=== PATIENT | male | born 1975 | race Caucasian/White ===

== ENCOUNTER 2017-07-11 13:25 | Emergency (ER) | payer SELFPAY ==
[2017-07-11] MEDS ORDERED: traMADol 50 MG Tab PO ONE (13:55)
--- NOTE | 2017-07-11 13:59 | EDM.PDOC ---
ED HPI GENERAL MEDICAL PROBLEM - General Chief Complaint: Lower Extremity Injury/Pain Stated Complaint: HIP PAIN Time Seen by Provider: 07/11/17 13:27 Source of Information: Reports: Patient History Limitations: Reports: No Limitations - History of Present Illness INITIAL COMMENTS - FREE TEXT/NARRATIVE: History of present illness: []Patient had right hip surgery 20 years ago and complained of pain since last summer. Review of systems: As per history of present illness and below otherwise all systems reviewed and negative. Past medical history: As per history of present illness and as reviewed below otherwise noncontributory. Surgical history: As per history of present illness and as reviewed below otherwise noncontributory. Social history: No reported history of drug or alcohol abuse. Family history: As per history of present illness and as reviewed below otherwise noncontributory. Physical exam: General: Well developed, well nourished in NAD HEENT: Atraumatic, normocephalic, pupils reactive, negative for conjunctival pallor or scleral icterus, mucous membranes moist, throat clear, neck supple, nontender, trachea midline. Lungs: Clear to auscultation, breath sounds equal bilaterally, chest nontender. Heart: S1S2, regular, negative for clicks, rubs, or JVD. Abdomen: Soft, nondistended, nontender. Negative for masses or hepatosplenomegaly. Negative for costovertebral tenderness. Pelvis: Stable nontender. Genitourinary: Deferred. Rectal: Deferred. Extremities: Atraumatic, negative for cords or calf pain. Neurovascular unremarkable. Neuro: Awake, alert, oriented. Cranial nerves II through XII unremarkable. Cerebellum unremarkable. Motor and sensory unremarkable throughout. Exam nonfocal. Diagnostics: [] Therapeutics: [] Impression: []Chronic right hip pain Plan: []Follow-up orthopedics, tramadol for pain Definitive disposition and diagnosis as appropriate pending reevaluation and review of above. right hip Pain Score (Numeric/FACES): 10 - Related Data Allergies Allergy/AdvReac Type Severity Reaction Status Date / Time No Known Allergies Allergy Verified 07/11/17 13:56 Home Meds: Home Meds traMADol [Ultram] 50 mg PO Q8H PRN #16 tablet 07/11/17 [Rx] Review of Systems - Review of Systems Review Of Systems: See Below (See history of present illness) ED EXAM, GENERAL - Physical Exam Exam: See Below (See history of present illness) Course - Vital Signs Last Recorded V/S: Last Vital Signs Temp 97.8 F 07/11/17 13:57 Pulse 120 H 07/11/17 13:57 Resp 18 07/11/17 13:57 BP 140/87 07/11/17 13:57 Pulse Ox 96 07/11/17 13:57 - Orders/Labs/Meds Orders: Active Orders 24 hr Category Date Time Status Hip Min 2V or 3V w Pelvis Rt [CR] Stat Exams 07/11/17 13:56 Taken Meds: Medications Discontinued Medications Generic Name Dose Route Start Last Admin Trade Name Freq PRN Reason Stop Dose Admin Tramadol HCl 50 mg 07/11/17 13:55 Ultram PO 07/11/17 13:56 ONETIME ONE Departure - Departure Time of Disposition: 14:30 Disposition: Home, Self-Care 01 Condition: Good Clinical Impression: Chronic right hip pain - Discharge Information Prescriptions: traMADol [Ultram] 50 mg PO Q8H PRN #16 tablet PRN Reason: Pain Referrals: PCP,None [Primary Care Provider] - Forms: ED Department Discharge Additional Instructions: The following information is given to patients seen in the emergency department who are being discharged to home. This information is to outline your options for follow-up care. We provide all patients seen in our emergency department with a follow-up referral. The need for follow-up, as well as the timing and circumstances, are variable depending upon the specifics of your emergency department visit. If you don't have a primary care physician on staff, we will provide you with a referral. We always advise you to contact your personal physician following an emergency department visit to inform them of the circumstance of the visit and for follow-up with them and/or the need for any referrals to a consulting specialist. The emergency department will also refer you to a specialist when appropriate. This referral assures that you have the opportunity for follow-up care with a specialist. All of these measure are taken in an effort to provide you with optimal care, which includes your follow-up. Under all circumstances we always encourage you to contact your private physician who remains a resource for coordinating your care. When calling for follow-up care, please make the office aware that this follow-up is from your recent emergency room visit. If for any reason you are refused follow-up, please contact the [facility] at and asked to speak to the emergency department charge nurse. Tramadol or Motrin for pain follow-up with orthopedics next available appointment. [facility] [address], [address] [place] [address] - My Orders Last 24 Hours: My Active Orders 07/11/17 13:56 Hip Min 2V or 3V w Pelvis Rt [CR] Stat - Assessment/Plan Last 24 Hours: My Active Orders 07/11/17 13:56 Hip Min 2V or 3V w Pelvis Rt [CR] Stat
--- NOTE | 2017-07-13 15:53 | CR ---
EXAM DATE: 07/11/17 PATIENT'S AGE: 41 Patient: TIFFANI REID Facility: [place], [place] Site . Site : 1975 Study: XRay Extremity Right hip [id number] 2:22:44 PM Ordering Physician: Wilber Brennan Final Report: Indication: Pain. Technique: AP pelvis and 2 views of the right hip. Findings: Marked degenerative arthritis of the right hip with narrowing, spurring, and sclerosis. There is [id number] along the superior margin of the joint space. There are 2 metallic pins traversing the intertrochanteric right hip. The left hip is within normal limits. Impression: Advanced degenerative arthritis of the right hip. Postsurgical change of the right hip. No fracture or dislocation. Dictated by Singh Spaulding MD @ Jul 11 2017 2:43PM (Electronic Signature) Report Signed by Proxy. WINTER
== END 2017-07-11 14:40 | disposition home or self-care (01) ==
LOC: MW.ED 13:25
DX: M25.551 Pain in right hip (principal); G89.29 Other chronic pain
CPT/HCPCS: 73502; 99283; A9270

== ENCOUNTER 2017-10-20 19:45 | Emergency (ER) | payer SELFPAY ==
--- NOTE | 2017-10-20 20:44 | EDM.PDOC ---
ED HPI GENERAL MEDICAL PROBLEM - General Chief Complaint: Gastrointestinal Problem Stated Complaint: RECTAL PAIN Time Seen by Provider: 10/20/17 20:38 Source of Information: Reports: Patient History Limitations: Reports: No Limitations - History of Present Illness INITIAL COMMENTS - FREE TEXT/NARRATIVE: HISTORY AND PHYSICAL: []42-year-old male presenting with rectal pain History of Present Illness: []Patient has history of having hemorrhoids. He states he was standing at work today and instantly had this severe pain he has used Preparation H without any relief. Review of Systems: As per history of present illness and below otherwise all systems reviewed and negative. Past medical history: As per history of present illness and as reviewed below otherwise noncontributory. Surgical history: As per history of present illness and as reviewed below otherwise noncontributory. Social history: No reported history of drug or alcohol abuse. Family history: As per history of present illness and as reviewed below otherwise noncontributory. Physical exam: Alert and oriented gentleman answering questions in full sentences denies any other difficulties. HEENT: Atraumatic, normocehpalic, pupils reactive, negative for conjunctival pallor or scleral icterus, mucous membranes moist, throat clear, neck supple, nontender, trachea midline. Lungs: Clear to auscultation, breath sounds equal bilaterally, chest non tender. Heart: S1S2, regular, negative for clicks, rubs, or JVD. Abdomen: Soft, nondistended, nontender. Negative for masses or hepatossplenmegaly. Negative for costovertebral tenderness. Pelvis: Stable nontender. Genitourinary: Deferred. Rectal: Deferred Extremities: Atraumatic, negative for cords or calf pain. Neurovascular unremarkable. Neuro: Awake, alert, oriented. Cranial nerves II through XII unremarkable. Cerebellum unremarkable. Motor and sensory unremarkable throughout. Exam nonfocal. Diagnostics: [] Therapeutics: [] Impression: [Thrombosed hemorrhoids] Plan: [Discharged to home [facility] Follow-up with surgeon ] Definitive disposition and diagnosis as appropriate pending reevaluation and review of above. Onset: Today, Sudden Location: Reports: Other (rectal) REctum Pain Score (Numeric/FACES): 8 - Related Data Allergies Allergy/AdvReac Type Severity Reaction Status Date / Time No Known Allergies Allergy Verified 10/20/17 20:35 Home Meds: Home Meds Hydrocortisone [Proctocort] 28.35 gm RC Q6HR #1 cream..g. 10/20/17 [Rx] Past Medical History - Past Surgical History Musculoskeletal Surgical History: Reports: Other (See Below) Other Musculoskeletal Surgeries/Procedures:: Broken hip Social & Family History - Family History Family Medical History: Noncontributory - Tobacco Use Smoking Status *Q: Current Every Day Smoker Years of Tobacco use: 30 Packs/Tins Daily: 1 - Alcohol Use Days Per Week of Alcohol Use: 7 Number of Drinks Per Day: 2 Total Drinks Per Week: 14 - Recreational Drug Use Recreational Drug Use: No ED ROS GENERAL - Review of Systems Review Of Systems: ROS reveals no pertinent complaints other than HPI. ED EXAM, GI/ABD - Physical Exam Exam: See Below (see dictation) Course - Vital Signs Last Recorded V/S: Last Vital Signs Temp 36.1 C 10/20/17 19:45 Pulse 92 10/20/17 19:45 Resp 18 10/20/17 19:45 BP 127/85 10/20/17 19:45 Pulse Ox 97 10/20/17 19:45 Departure - Departure Time of Disposition: 20:40 Disposition: Home, Self-Care 01 Condition: Good Clinical Impression: Thrombosed external hemorrhoids - Discharge Information Prescriptions: Hydrocortisone [Proctocort] 28.35 gm RC Q6HR #1 cream..g. Referrals: PCP,None [Primary Care Provider] - Additional Instructions: The following information is given to patients seen in the emergency department who are being discharged to home. This information is to outline your options for follow-up care. We provide all patients seen in our emergency department with a follow-up referral. The need for follow-up, as well as the timing and circumstances, are variable depending upon the specifics of your emergency department visit. If you don't have a primary care physician on staff, we will provide you with a referral. We always advise you to contact your personal physician following an emergency department visit to inform them of the circumstance of the visit and for follow-up with them and/or the need for any referrals to a consulting specialist. The emergency department will also refer you to a specialist when appropriate. This referral assures that you have the opportunity for followup care with a specialist. All of these measure are taken in an effort to provide you with optimal care, which includes your followup. Under all circumstances we always encourage you to contact your private physician who remains a resource for coordinating your care. When calling for followup care, please make the office aware that this follow-up is from your recent emergency room visit. If for any reason you are refused follow-up, please contact the [facility] emergency department at and asked to speak to the emergency department charge nurse. You have some hemorrhoids that need to be addressed by surgeon Proctocort cream has been ordered by prescription to use every 6 hours Colace for stool softener twice a day Sitz baths with warm water Follow-up with surgeon [facility] - [facility] Professional Building [address] [place] [address], [address] [place] [address]
== END 2017-10-20 21:00 | disposition home or self-care (01) ==
LOC: MW.ED 19:45
DX: K64.5 Perianal venous thrombosis (principal); F17.210 Nicotine dependence, cigarettes, uncomplicated
CPT/HCPCS: 99282; 99283

== ENCOUNTER 2017-10-23 10:56 | Day surgery (SDC) | payer OTHER ==
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
[2017-10-23] MEDS ORDERED: Lidocaine 2% 5 ML SDV ONE (11:38)
[2017-10-23] MEDS ORDERED: Rocuronium 10 MG/ML 10 ML Syringe ONE (11:38)
[2017-10-23] MEDS ORDERED: fentaNYL 250 MCG/5 ML SDV ONE (11:38)
[2017-10-23] MEDS ORDERED: Ondansetron 4 MG/2 ML SDV ONE (11:38)
[2017-10-23] MEDS ORDERED: Midazolam 1 MG/ML 2 ML SDV ONE (11:38)
[2017-10-23] MEDS ORDERED: Propofol 200 MG/20 ML SDV ONE (11:38)
[2017-10-23] MEDS ORDERED: Bupivacaine 0.5% 10 ML SDV ONE (11:41)
[2017-10-23] MEDS ORDERED: Gelatin Sponge,Absorbable 12-7 mm Sponge TOP ONE (11:44)
[2017-10-23] MEDS ORDERED: HYDROmorphone 2 MG/ML SDV ONE (11:46)
[2017-10-23] MEDS ORDERED: Lactated Ringers 1,000 ML IV SCH (12:00)
--- NOTE | 2017-10-23 12:59 | PCM.OPNOTE ---
- General Post-Op/Procedure Note Date of Surgery/Procedure: 10/23/17 Operative Procedure(s): Left lateral hemorrhoidectomy Findings: Enlarged thrombosed left lateral internal hemorrhoid that was necrosing the skin. Pre Op Diagnosis: Thrombosed internal hemorrhoids Post-Op Diagnosis: same Anesthesia Technique: General ET Tube Primary Surgeon: Karen Ansari EBL in mLs: 25 Condition: Good
[2017-10-23] MEDS: fentaNYL 100 MCG/2 ML SDV IVPUSH PRN ×4 (13:27→13:44)
[2017-10-23] MEDS ORDERED: Acetaminophen/oxyCODONE 325-5 MG Tab PO PRN (13:39)
--- NOTE | 2017-10-23 13:53 | PCM.POSTAN ---
POST ANESTHESIA ASSESSMENT - MENTAL STATUS Mental Status: Alert, Oriented Free Text/Narrative:: Conversant and tolerable discomfort with narcotic assistance. - RESPIRATORY Respiratory Status: Respiratory Rate WNL, Airway Patent, O2 Saturation Stable - CARDIOVASCULAR CV Status: Pulse Rate WNL, Blood Pressure Stable - GASTROINTESTINAL GI Status: No Symptoms - POST OP HYDRATION Hydration Status: Adequate & Stable - OBSERVATIONS Free Text/Narrative:: To phase II
--- NOTE | 2017-10-23 14:26 | PCM48HPAN ---
Post Anesthesia Note - EVALUATION WITHIN 48HRS OF ANESTHETIC Vital Signs in Normal Range: Yes Patient Participated in Evaluation: Yes Respiratory Function Stable: Yes Airway Patent: Yes Cardiovascular Function Stable: Yes Hydration Status Stable: Yes Pain Control Satisfactory: Yes Nausea and Vomiting Control Satisfactory: Yes Mental Status Recovered: Yes Resp Rate: 14 - COMMENTS/OBSERVATIONS Free Text/Narrative:: Pain level improved over his presentation here for surgery. Home soon.
--- NOTE | 2017-10-23 15:09 | OR ---
SURGEON: ANA WADE MD DATE OF PROCEDURE: 10/23/2017 PREOPERATIVE DIAGNOSIS: Thrombosed internal hemorrhoid. POSTOPERATIVE DIAGNOSIS: Thrombosed internal hemorrhoid. PROCEDURE PERFORMED: Hemorrhoidectomy x1. ANESTHESIA: General endotracheal anesthesia. FINDINGS: Large prolapsed left lateral internal hemorrhoid with skin necrosis and thrombosis. SPECIMEN: Hemorrhoids. ESTIMATED BLOOD LOSS: 25 mL. COMPLICATIONS: None. INDICATIONS: The patient is a 42-year-old male who presents with several days' worth of perianal pain. He presented to the emergency room on the and was told that he most likely had an externally thrombosed hemorrhoid. He was given hydrocortisone cream, which did not improve his symptoms. The patient was then referred to my office. On physical exam today, I noted a large prolapsed internal hemorrhoid with thrombosis and partial necrosis of the skin overlying the hemorrhoid. The decision was made to take the patient to the operating room today in order to excise this. We discussed the procedure as well as expected perioperative course. We discussed the importance of postoperative cares and the risks of the procedure including bleeding, infection, or damage to surrounding structures including alteration of continence. The patient verbalized understanding and wishes to proceed. PROCEDURE IN DETAIL: The patient was brought into the operating room on the OR cart. A time-out was completed verifying the patient's name, age, date of , allergies, and procedure to be performed. General endotracheal anesthesia was induced. The patient was then placed in a prone position on the OR table making sure to appropriately pad all bony surfaces. He was then placed in a prone joseph-knife position. The anus was prepped and draped in usual standard fashion. A digital rectal exam was performed. The patient was noted to have a very prominent large prolapsed left lateral internal hemorrhoid. This was grasped with a hemorrhoidal clamp. A 2-0 chromic stitch was placed at the apex and I ran a running stitch below my clamp. Bovie electrocautery was then used to elliptically excise the large hemorrhoid staying superficial to the sphincter muscle. The hemorrhoid was then passed off as specimen. Unfortunately, I bovied through my suture and so a new one was placed. The mucosa was closed with a running locking chromic stitch, which was then run back to itself in a simple whipstitch fashion. This provided a good hemostasis. I then inspected the remainder of the anal canal. The patient did have a hemorrhoid along the right lateral wall, however, this was much smaller and did not appear acutely inflamed or thrombosed. A decision was made to leave this in place for now as it was not prolapsing. A pudendal nerve block was performed on either side using 10 mL each of 0.5% Marcaine plain. Fluffs and mesh underwear were placed on the patient. He was extubated and taken to PACU in stable condition. ROMELIA CARRANZA /[id number] MTDD
== END 2017-10-23 14:30 | disposition home or self-care (01) ==
LOC: MW.SDS 10:56
PROVIDERS: ATTEND Surgery
DX: K64.5 Perianal venous thrombosis (principal); F17.210 Nicotine dependence, cigarettes, uncomplicated
CPT/HCPCS: 46255; A9270; J1170; J2250; J2405; J3010; J7120; 00902; 88304; J2704

== ENCOUNTER 2022-07-24 16:20 | Emergency (ER) | payer OTHER ==
[2022-07-24] MEDS ORDERED: Sodium Chloride 0.9% 1,000 ML IV ONE (16:24)
[2022-07-24] MEDS ORDERED: Diphtheria,Pertussis(Acell),Tetanus Vaccine 0.5 ML Syringe IM ONE (16:25)
[2022-07-24 17:25] LABS: BLOOD UREA NITROGEN,BUN 9 mg/dL (7.0-18.0); CARBON DIOXIDE,CO2 23.4 mmol/L (21.0-32.0); CHLORIDE,CL 100 mmol/L (98-107); GLUCOSE RANDOM 113 mg/dL (74-106); POTASSIUM,K 3.7 mmol/L (3.5-5.1); SODIUM,NA 137 mmol/L (136-148)
[2022-07-24 17:27] LABS: ESTIMATED GFR 119 mL/min (>60)
[2022-07-24 17:58] LABS: CORONAVIRUS COVID-19 NAA NEGATIVE (NEGATIVE); INFLUENZA A NAA NEGATIVE (NEGATIVE); INFLUENZA B NAA NEGATIVE (NEGATIVE); RESPIRATORY SYNCYTIAL VIR NAA NEGATIVE (NEGATIVE)
== END 2022-07-24 20:04 | disposition home or self-care (01) ==
LOC: MW.ED 16:20
DX: T33.539A Superficial frostbite of unspecified finger(s), initial encounter (principal); T33.829A Superficial frostbite of unspecified foot, initial encounter; F10.929 Alcohol use, unspecified with intoxication, unspecified; Z23 Encounter for immunization; Z20.822 Contact with and (suspected) exposure to COVID-19; X31.XXXA Exposure to excessive natural cold, initial encounter
CPT/HCPCS: 0241U; 36415; 71045; 80053; 80307; 81003; 83735; 85025; 85610; 90471; 90715; 96360; 99284; J7030; 99285

== ENCOUNTER 2024-08-05 15:03 | Emergency (ER) | payer OTHER | END 2024-08-05 15:50 | LOC: MW.ED 15:03 | DX: F10.120 Alcohol abuse with intoxication, uncomplicated (principal); Y90.9 Presence of alcohol in blood, level not specified | CPT/HCPCS: 99284 ==

== ENCOUNTER 2024-10-20 09:21 | Emergency (ER) | payer OTHER ==
[2024-10-20 10:13] LABS: BASOPHILS ABSOLUTE AUTO 0.09 K/uL (0.00-0.20); BASOPHILS PERCENT AUTO 1.3 % (0.0-1.0); EOSINOPHILS ABSOLUTE AUTO 0.25 K/uL (0.00-0.45); EOSINOPHILS PERCENT AUTO 3.6 % (0.0-6.0); HEMATOCRIT 46.2 % (42.0-52.0); IMMATURE GRAN ABSOLUTE AUTO 0.03 K/uL (0.00-0.05); IMMATURE GRAN PERCENT AUTO 0.4 % (0.0-0.4); LYMPHOCYTES ABSOLUTE AUTO 2.34 K/uL (1.00-4.80); LYMPHOCYTES PERCENT AUTO 33.6 % (24.0-44.0); MEAN CORPUSCULAR HEMOGLOBIN 35.7 pg (28.0-32.0); MEAN CORPUSCULAR HGB CONC 34.6 g/dL (32.0-36.0); MEAN CORPUSCULAR VOLUME 103.1 fL (83.0-99.0); MEAN PLATELET VOLUME 9.6 fL (9.4-12.4); MONOCYTES ABSOLUTE AUTO 0.77 K/uL (0.00-0.80); MONOCYTES PERCENT AUTO 11.1 % (0.0-8.0); NEUTROPHILS ABSOLUTE AUTO 3.48 K/uL (1.80-7.70); PLATELET COUNT,PLT 218 K/uL (150-400); RED BLOOD CELL COUNT 4.48 M/uL (4.52-5.90); WHITE BLOOD CELL COUNT,WBC 6.96 K/uL (3.9-11.3)
[2024-10-20] MEDS: Ondansetron 4 MG/2 ML SDV IVPUSH ONE (10:15)
[2024-10-20] MEDS: Morphine 4 MG/ML Syringe IVPUSH ONE (10:15)
[2024-10-20] MEDS: Sodium Chloride 0.9% 1,000 ML IV ONE (10:15)
[2024-10-20 10:44] LABS: A/G RATIO 0.9 (0.9-1.6); ALBUMIN 3.7 g/dL (3.4-5.0); BILIRUBIN TOTAL 0.6 mg/dL (0.2-1.0); C-REACTIVE PROTEIN 0.22 mg/dL (<0.3); CALCIUM 9.2 mg/dL (8.5-10.1); CARBON DIOXIDE,CO2 31.3 mmol/L (21.0-32.0); CREATININE 0.9 mg/dL (0.8-1.3); EST CRCL DRUG DOSING (CG) 106.58 mL/min; POTASSIUM,K 3.9 mmol/L (3.5-5.1); PROTEIN TOTAL,TP 7.6 g/dL (6.4-8.2)
[2024-10-20] MEDS: Iopamidol 755 MG/ML 500 ML Multipack Bottle IVPUSH ONE (10:59)
[2024-10-20] MEDS: Ketorolac 30 MG/ML SDV IVPUSH ONE (11:27)
[2024-10-20] MEDS: Albuterol/Ipratropium 3.0-0.5 MG/3 ML Neb Soln NEB ONE (13:15)
== END 2024-10-20 15:54 | disposition home or self-care (01) ==
LOC: MW.ED 09:21
DX: K62.3 Rectal prolapse (principal); R74.01 Elevation of levels of liver transaminase levels; F17.200 Nicotine dependence, unspecified, uncomplicated; Z79.899 Other long term (current) drug therapy; Z87.19 Personal history of other diseases of the digestive system
CPT/HCPCS: 36415; 74177; 80053; 83605; 83880; 85025; 85652; 86140; 93005; 94640; 96361; 96374; 96375; 99284; J1885; J2270; J2405; J7030; J7620; Q9967; 93010; A9270-GY

== ENCOUNTER 2024-11-25 04:16 | Emergency (ER) | payer OTHER ==
[2024-11-25] MEDS ORDERED: Sodium Chloride 0.9% 10 ML Syringe FLUSH PRN (05:13)
[2024-11-25 05:24] LABS: BASOPHILS PERCENT AUTO 1.4 % (0.0-1.0); EOSINOPHILS ABSOLUTE AUTO 0.27 K/uL (0.00-0.45); EOSINOPHILS PERCENT AUTO 3.7 % (0.0-6.0); HEMATOCRIT 43.5 % (42.0-52.0); HEMOGLOBIN 15.3 g/dL (14.0-18.0); IMMATURE GRAN ABSOLUTE AUTO 0.03 K/uL (0.00-0.05); IMMATURE GRAN PERCENT AUTO 0.4 % (0.0-0.4); LYMPHOCYTES ABSOLUTE AUTO 2.05 K/uL (1.00-4.80); LYMPHOCYTES PERCENT AUTO 27.9 % (24.0-44.0); MEAN CORPUSCULAR HEMOGLOBIN 35.8 pg (28.0-32.0); MEAN CORPUSCULAR HGB CONC 35.2 g/dL (32.0-36.0); MEAN CORPUSCULAR VOLUME 101.9 fL (83.0-99.0); MEAN PLATELET VOLUME 9.5 fL (9.4-12.4); MONOCYTES PERCENT AUTO 10.9 % (0.0-8.0); NEUTROPHILS ABSOLUTE AUTO 4.11 K/uL (1.80-7.70); NEUTROPHILS PERCENT AUTO 55.7 % (41.0-71.0); PLATELET COUNT,PLT 262 K/uL (150-400); RED BLOOD CELL COUNT 4.27 M/uL (4.52-5.90); WHITE BLOOD CELL COUNT,WBC 7.36 K/uL (3.9-11.3)
[2024-11-25 05:31] LABS: INR 1.17 (0.86-1.11)
[2024-11-25 05:34] LABS: ALBUMIN 3.6 g/dL (3.4-5.0); BILIRUBIN TOTAL 0.2 mg/dL (0.2-1.0); CALCIUM 9.4 mg/dL (8.5-10.1); CARBON DIOXIDE,CO2 28.1 mmol/L (21.0-32.0); EST CRCL DRUG DOSING (CG) 95.92 mL/min; POTASSIUM,K 3.8 mmol/L (3.5-5.1); PROTEIN TOTAL,TP 7.2 g/dL (6.4-8.2)
[2024-11-25] MEDS: Iopamidol 755 MG/ML 500 ML Multipack Bottle IVPUSH ONE (06:03)
[2024-11-25 06:50] LABS: APPEARANCE,URINE CLEAR; BILIRUBIN,URINE NEGATIVE (NEGATIVE); COLOR,URINE YELLOW; GLUCOSE,URINE NEGATIVE (NEGATIVE); KETONES,URINE NEGATIVE (NEGATIVE); LEUKOCYTE ESTERASE,URINE NEGATIVE (NEGATIVE); NITRITE,URINE NEGATIVE (NEGATIVE); OCCULT BLOOD,URINE NEGATIVE (NEGATIVE); PROTEIN,URINE NEGATIVE (NEGATIVE); UROBILINOGEN,URINE 0.2 EU/dL (<2.0)
[2024-11-25] MEDS ORDERED: Hydrocortisone 2.5% Crm 30 GM Tube TOP ONE (06:53)
[2024-11-25] MEDS: Sodium Chloride 0.9% 1,000 ML IV ONE (07:00)
== END 2024-11-25 08:07 | disposition home or self-care (01) ==
LOC: MW.ED 04:16
DX: K62.5 Hemorrhage of anus and rectum (principal); K52.9 Noninfective gastroenteritis and colitis, unspecified; R03.0 Elevated blood-pressure reading, without diagnosis of hypertension; R74.8 Abnormal levels of other serum enzymes; Z87.19 Personal history of other diseases of the digestive system
CPT/HCPCS: 36415; 74177; 80053; 81003; 85025; 85610; 96360; 99284; J7030; Q9967; 99283

== ENCOUNTER 2025-05-20 10:11 | Emergency (ER) | payer OTHER ==
[2025-05-20] MEDS ORDERED: Sodium Chloride 0.9% 2.5 ML Syringe FLUSH PRN (11:13)
[2025-05-20] MEDS ORDERED: Sodium Chloride 0.9% 10 ML Syringe FLUSH PRN (11:13)
[2025-05-20 11:47] LABS: BASOPHILS ABSOLUTE AUTO 0.09 K/uL (0.00-0.20); BASOPHILS PERCENT AUTO 1.6 % (0.0-1.0); EOSINOPHILS ABSOLUTE AUTO 0.07 K/uL (0.00-0.45); EOSINOPHILS PERCENT AUTO 1.3 % (0.0-6.0); IMMATURE GRAN ABSOLUTE AUTO 0.02 K/uL (0.00-0.05); IMMATURE GRAN PERCENT AUTO 0.4 % (0.0-0.4); LYMPHOCYTES ABSOLUTE AUTO 1.74 K/uL (1.00-4.80); LYMPHOCYTES PERCENT AUTO 31.2 % (24.0-44.0); MEAN PLATELET VOLUME 9.7 fL (9.4-12.4); MONOCYTES ABSOLUTE AUTO 0.69 K/uL (0.00-0.80); MONOCYTES PERCENT AUTO 12.4 % (0.0-8.0); NEUTROPHILS ABSOLUTE AUTO 2.96 K/uL (1.80-7.70); NEUTROPHILS PERCENT AUTO 53.1 % (41.0-71.0); NRBC ABSOLUTE 0.00 K/uL (0.00-0.02); NRBC PERCENT 0.0 /100WBC (0.0-0.2); PLATELET COUNT,PLT 183 K/uL (150-400); RED BLOOD CELL COUNT 4.03 M/uL (4.52-5.90); WHITE BLOOD CELL COUNT,WBC 5.57 K/uL (3.9-11.3)
[2025-05-20] MEDS: Ketorolac 30 MG/ML SDV IVPUSH ONE (12:02)
[2025-05-20] MEDS: Dexamethasone Sod Phos Preservative Free 10 MG/ML Vial IV ONE (12:03)
[2025-05-20] MEDS: Orphenadrine 60 MG/2 ML Inj IV ONE (12:03)
[2025-05-20 12:10] LABS: A/G RATIO 1.2 (0.9-1.6); ALANINE AMINOTRANSFERASE,ALT 262.0 IU/L (14-63); ASPARTATE AMNIOTRANSFERASE,AST 153.0 IU/L (15-37); BILIRUBIN TOTAL 0.6 mg/dL (0.2-1.0); BLOOD UREA NITROGEN,BUN 11.0 mg/dL (7.0-18.0); CARBON DIOXIDE,CO2 27.7 mmol/L (21.0-32.0); CHLORIDE,CL 103.0 mmol/L (98-107); CREATININE 0.7 mg/dL (0.8-1.3); EST CRCL DRUG DOSING (CG) 137.03 mL/min; GLUCOSE RANDOM 141.0 mg/dL (74-106); POTASSIUM,K 3.4 mmol/L (3.5-5.1); PROTEIN TOTAL,TP 7.6 g/dL (6.4-8.2); SODIUM,NA 144.0 mmol/L (136-148)
[2025-05-20 12:12] LABS: ESTIMATED GFR 112.0 mL/min (>60)
== END 2025-05-20 13:25 | disposition home or self-care (01) ==
LOC: MW.ED 10:11
DX: M51.26 Other intervertebral disc displacement, lumbar region (principal); R74.01 Elevation of levels of liver transaminase levels; F17.200 Nicotine dependence, unspecified, uncomplicated; Z75.3 Unavailability and inaccessibility of health-care facilities
CPT/HCPCS: 36415; 72131; 72192; 80053; 85025; 96361; 96374; 96375; 99284; A9270; J1100; J1885; J2360; J7030; 99283